=== PATIENT | female | born 2005 | race African-American/Black ===

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

== ENCOUNTER → 2024-01-30 | Outpatient (CLI) | payer BC, SELFPAY ==
[2024-01-30 16:29] LABS: Cholesterol 171 mg/dL (200); High Density Lipoprotein 58 mg/dL; T4 Free Direct 1.01 ng/dL (0.76-1.46); Thyroid Stim Hormone (TSH) 0.83 uIU/mL (0.358-3.74); Triglycerides 48 mg/dL; Very Low Density Lipoprotein 10 mg/dL (5-40)
== END | disposition home or self-care (01) ==
LOC: BIMLAB 12:06
PROVIDERS: PCP Nurse Practitioner; Referring Provider Nurse Practitioner; Visit Provider Nurse Practitioner
DX: E10.65 Type 1 diabetes mellitus with hyperglycemia (principal)
CPT/HCPCS: 36415; 80061; 84439; 84443

== ENCOUNTER 2024-10-21 23:19 | Emergency (ER) | payer BC, SELFPAY ==
[2024-10-21 23:19] VITALS: BP 121/83; PULSE 86; RESP 18; TEMP 36; O2SAT 100; BMI 24.7
--- NOTE | 2024-10-21 23:25 | EX.ED.DYSGE1 ---
HPI History of Present Illness Chief Complaint: Ear Problem [facility] Medical History History of cold urticaria Hives Recurrent UTI Adrenal disorder Diabetes mellitus, new onset Ovarian cyst Home Medications ?Medication ?Instructions ?Recorded ?Last Taken ?Type blood sugar diagnostic (OneTouch #100 ea 07/16/23 Unknown Rx Verio test strips) blood-glucose meter (OneTouch #1 ea 07/16/23 Unknown Rx Verio Flex Start kit) lancets (Accu-Chek Softclix #100 ea 07/16/23 Unknown Rx Lancets) pen needle, diabetic 32 gauge x #100 ea 11/04/23 Unknown Rx 5/32 (BD Ultra-Fine Deepa Pen Needle) insulin pump cartridge,automated #1 ea 11/05/23 Unknown Rx dose,BT with controller subcutaneous (Omnipod 5 G6 Intro Kit (Gen 5) subcutaneous cartridge with controller) cetirizine 10 mg tablet (Zyrtec) 10 mg PO DAILY 11/19/23 Unknown History blood-glucose sensor (Dexcom G6 #9 ea 11/28/23 Unknown Rx Sensor device) blood-glucose transmitter (Dexcom #1 ea 11/28/23 Unknown Rx G6 Transmitter device) insulin aspart U-100 100 unit/mL 50 unit (0.5 mL) continuous 09/02/24 Unknown Rx subcutaneous solution (Novolog subcutaneous infusion DAILY #45 mL U-100 Insulin aspart) insulin pump cart,automated,BT #30 ea 10/05/24 Unknown Rx amoxicillin 875 mg-potassium 1 tab PO BID otitis media 7 days 10/21/24 Unknown Rx clavulanate 125 mg tablet #14 tabs Allergy/AdvReac Type Severity Reaction Status Date / Time No Known Allergies Allergy Verified 10/21/24 23:19 Family History Grandmother Asthma Autoimmune disorder Hyperlipidemia Heart disease Systemic sclerosis Raynauds disease Restrictive lung disease Cervical cancer Depression Ovarian cancer Polymyositis Thyroid disorder Osteoporosis Interstitial lung disease Myocardial infarction Arthritis Mother Diabetes Hyperlipidemia GERD (gastroesophageal reflux disease) Depression Anxiety Grandfather Liver disease Hyperlipidemia Hepatitis C Aunt Acute Crohn's disease Mental disorder Social History adopted: No household members: family current occupational status: employed current occupational exposures/hazards: No Smoking Status: Never smoker alcohol intake: never substance use type: does not use what type of physical activity do you participate in: other details: sports, dancing frequency: daily seatbelt use: always do you feel safe at home: Yes additional social history: Student at [employer] EXAM Physical Exam Const Vital Signs: 10/21/24 23:19 Temperature 96.8 F L Temperature Source Temporal Pulse Rate 86 Respiratory Rate 18 Blood Pressure 121/83 H Blood Pressure Mean 95 Pulse Ox 100 Oxygen Delivery Method Room Air MDM MDM MDM Narrative Medical decision making narrative: HISTORY OF PRESENT ILLNESS: 19 old female presents right ear pain. Notes this began today. No recent swimming. No recent right ear manipulation. REVIEW OF SYSTEMS: Pertinent positives: Right ear pain Pertinent negatives: Vomiting, fever PHYSICAL EXAM: Nursing triage notes reviewed, Vital signs reviewed Constitutional: please see mdm HENT: MMM, left TM pearly starkey, right TM hyperemic, swollen and bulging no obvious effusion noted however. Eyes: Pupils equal round and reactive to light, Extraocular muscles intact Neck: No stridor, no JVD, full neck ROM Lungs: Clear to auscultation, No wheezing or rales. No increased work of breathing, no conversational dyspnea, no accessory muscle use, no nasal flaring. No respiratory distress noted Heart: Regular rate and rhythm, No murmurs, No rubs and No gallops, 2+ distal pulses (radial, femoral, posterior tibial) in all extremities Skin: No rash or lesions noted MEDICAL DECISION MAKING: Chief Complaint: Right ear pain External records reviewed: Reviewed prior records, reviewed prior allergies, problem list, current medications Factors affecting care: Type 1 diabetes Social determinants of health: none History obtained from others: none Consults: none [facility] Narrative: Patient was initially hemodynamically stable, afebrile and nontoxic-appearing. Exam consistent with otitis media. I considered the following differential diagnosis: Otitis media, otitis externa, mastoiditis, Will give oral Augmentin here and discharged with Augmentin. The patient and/or family, caregivers express understanding. The patient and/or family, caregivers agrees with the plan. Shared decision making: I will have a discussion with the patient and or visitors regarding risk/benefits of further testing or admission. They will be made aware of of the risk/benefits inherent in this decision they will be given the opportunity to voice understanding. Total critical care time today provided was at least 0 [] minutes. This excludes separately billable procedures. Critical care time (if documented) is secondary to the patient having high probability of clinically significant/life threatening deterioration in the patient's condition which required my urgent intervention. Impression: 1. Acute right ear pain 2. Acute otitis media 3. History of type 1 diabetes Dispo: Discharge home This note was generated with [employer] dictation software. It may contain incorrect words, spelling, and punctuation that were not noted in review of the chart prior to signing. Discharge Plan Triage Chief Complaint: Ear Problem ED Provider: Tho Murphy Dx/Rx/DC Orders Clinical Impression: Otitis media Instructions: ED Otitis Media Adult Prescriptions: New amoxicillin-pot clavulanate 875-125 mg tablet 1 tab PO BID 7 Days Qty: 14 0RF No Action (DME) blood-glucose meter [OneTouch Verio Flex Start] Kit See Rx Instructions .Route Qty: 1 0RF Rx Instructions: As directed (DME) OneTouch Verio test strips Strip See Rx Instructions .Route Qty: 100 5RF Rx Instructions: 4x/day (DME) lancets [Accu-Chek Softclix Lancets] Misc See Rx Instructions .Route Qty: 100 5RF Rx Instructions: 4x/day cetirizine [Zyrtec] 10 mg tablet 10 mg PO DAILY (DME) pen needle, diabetic [BD Ultra-Fine Deepa Pen Needle] 32 gauge x 5/32 needle See Rx Instructions .Route Qty: 100 5RF Rx Instructions: 4xday (DME) Omnipod 5 G6 Intro Kit (Gen 5) Cartridge See Rx Instructions .Route Qty: 1 0RF Rx Instructions: As directed (DME) Dexcom G6 Sensor Device See Rx Instructions .Route Qty: 9 1RF Rx Instructions: 1 sensor q 10 days (DME) Dexcom G6 Transmitter Device See Rx Instructions .Route Qty: 1 1RF Rx Instructions: 1 transmitter q 90 days insulin aspart U-100 [Novolog U-100 Insulin aspart] 100 unit/mL solution 50 unit continuous subcutaneous infusion DAILY Qty: 45 1RF Rx Instructions: via insulin pump (DME) insulin pump cart,automated,BT Cartridge See Rx Instructions .Route Qty: 30 0RF Rx Instructions: 1 pod q 72 hours Primary Care Provider: Darling Prince Referrals: Darling Prince, [employer] [Primary Care Provider] - Activity Restrictions/Additional Instructions: Thank you for trusting us with your care today! You have been diagnosed with otitis media which is and infection of the middle ear. This is typically treated with oral antibiotics. Your first dose was given here in the emergency department. Please take Tylenol (2 pills, 650 mg), ibuprofen (2 pills, 400 mg) every 6 hours as needed for pain and fever control. Please take antibiotics until course completed. Please return to the emergency department if your symptoms change or worsen. Specifically develop severe fever, vomiting, cannot tolerate antibiotics by mouth. Please follow with your primary care physician for further outpatient evaluation and management. Print Language: Greenlandic Disposition Disposition: Home, Self Care
[2024-10-21] MEDS: Amox/Clavulanate 875 MG Tablet PO (23:56)
== END 2024-10-21 23:57 | disposition home or self-care (01) ==
LOC: ED 23:48
PROVIDERS: Emergency Provider Emergency Medicine; PCP Nurse Practitioner; Visit Provider Emergency Medicine
DX: H66.91 Otitis media, unspecified, right ear (principal); E10.9 Type 1 diabetes mellitus without complications; Z79.4 Long term (current) use of insulin
CPT/HCPCS: 99282

== ENCOUNTER → 2024-11-17 | Outpatient (CLI) | payer BC, SELFPAY ==
[2024-11-17 17:23] LABS: Vitamin D,25 Hydroxy 11.5 ng/mL
[2024-11-17 17:30] LABS: ALB/GLOB Ratio 1.2 RATIO (0.9-2.4); AST(SGOT) 15 U/L (15-37); Alanine Aminotransfer ALT/SGPT 26 U/L (13-56); Albumin, Serum 4.5 g/dL (3.2-5.0); Alkaline Phosphatase 72 U/L (45-117); Anion Gap 5 (5-15); BUN 12 mg/dL (7-18); BUN/Creat Ratio 19.6 RATIO (10-20); Calcium,Total 9.6 mg/dL (8.5-10.1); Chloride 106 mmol/L (98-107); Cholesterol 176 mg/dL (200); Creatinine, Serum 0.61 mg/dL (0.55-1.02); EST Glomerular Filtration Rate 131 mL/min (>60); Est Glom Filt Rate - Afr Amer 159 mL/min (>60); Globulin 3.7 g/dL (2.2-4.2); Glucose 81 mg/dL (74-106); High Density Lipoprotein 66 mg/dL; Potassium 3.5 mmol/L (3.5-5.1); Protein, Total 8.2 g/dL (6.4-8.2); Sodium Level 136 mmol/L (136-145); Triglycerides 40 mg/dL; Very Low Density Lipoprotein 8 mg/dL (5-40)
[2024-11-17 17:38] LABS: Microalbumin,Random Urine 25.3 mg/L (NO RANGE EST.); Microalbumin:Creatinine Ratio 10.8 mg/g CRE (<30 mg/g CRE)
== END | disposition home or self-care (01) ==
LOC: LAB 16:19
PROVIDERS: PCP Nurse Practitioner; Referring Provider Nurse Practitioner Family; Visit Provider Nurse Practitioner Family
DX: E10.9 Type 1 diabetes mellitus without complications (principal)
CPT/HCPCS: 36415; 80053; 80061; 82043; 82306; 82570; 84443

== ENCOUNTER → 2024-11-22 | Outpatient (CLI) | payer BC, SELFPAY ==
[2024-11-22 13:52] LABS: HIV - WCH Non-Reactive (Nonreactive); Hepatitis C Antibody Non-Reactive (Nonreactive); Syphilis Antibodies Non-reactive
== END | disposition home or self-care (01) ==
PROVIDERS: Nurse Practitioner Women's Health; PCP Nurse Practitioner; Referring Provider Nurse Practitioner; Visit Provider Nurse Practitioner
DX: Z11.3 Encounter for screening for infections with a predominantly sexual mode of transmission (principal); Z20.2 Contact with and (suspected) exposure to infections with a predominantly sexual mode of transmission
CPT/HCPCS: 36415; 86695; 86696; 86703; 86780; 86803; 87491; 87591